=== PATIENT | female | born 1945 | race Caucasian/White ===

== ENCOUNTER 2024-01-07 07:34 | Emergency (ER) | payer SELFPAY ==
[~2024-01-07] VITALS: Ht 154.9 cm; Wt 64.0 kg
[2024-01-07 07:38] VITALS: PULSE 94
[2024-01-07 07:40] VITALS: BP 123/40; RESP 18; TEMP 98.1; O2SAT 96
[2024-01-07] MEDS ORDERED: NIRM1TAB8 PO (08:35)
== END 2024-01-07 09:08 | disposition home or self-care (01) ==
LOC: ER 07:34
DX: U07.1 COVID-19 (principal); J45.909 Unspecified asthma, uncomplicated; E11.9 Type 2 diabetes mellitus without complications; I10 Essential (primary) hypertension
CPT/HCPCS: 71045; 99283